=== PATIENT | male | born 1960 | race Two or more races ===

== ENCOUNTER 2023-01-23 15:18 | Emergency (ER) | payer OTHER ==
[~2023-01-23] VITALS: Ht 154.9 cm; Wt 71.2 kg
[2023-01-23] MEDS ORDERED: OMEPRAZOLE20 MG PO (16:06)
[2023-01-23] MEDS ORDERED: DICY20TA PO (20:27)
[2023-01-23] MEDS ORDERED: PEPCID AC20 MG PO (20:27)
== END 2023-01-23 20:37 | disposition home or self-care (01) ==
LOC: ER 15:18
PROVIDERS: General Practice
DX: K52.9 Noninfective gastroenteritis and colitis, unspecified (principal); R10.9 Unspecified abdominal pain; I10 Essential (primary) hypertension